=== PATIENT | male | born 1965 | race African-American/Black ===

== ENCOUNTER 2018-02-13 00:57 | Inpatient (IN) | payer BC ==
[~2018-02-13] VITALS: Ht 180.3 cm; Wt 159.9 kg
[2018-02-13] VITALS (8 sets, daily range): BP systolic 100–136; BP diastolic 56–82
--- NOTE | ~2018-02-13 | EKG ---
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 : 1965 Requested By: Jyoti Jerez Order Number: [id number] MD: Heriberto Vela Measurements Intervals [place] Rate: 53 P: -15 [place]: 205 QRS: 30 QRSD: 91 T: -23 QT: 471 QTc: 443 Interpretive Statements Sinus rhythm Borderline prolonged [place] interval Borderline T abnormalities, inferior leads Baseline wander in lead(s) V2 Compared to ECG 06/23/2015 09:33:51 Sinus tachycardia no longer present T-wave abnormality still present Electronically Signed On 02-13-2018 7:32:49 CDT by Heriberto Vela [email or web address] <ELECTRONICALLY SIGNED> By: Heriberto Vela MD 02/13/18 0732 0532 Heriberto Vela MD /EPI
--- NOTE | ~2018-02-13 | 2DMMODE ---
[facility] [address] [place] [address] 2 D/M-MODE ECHOCARDIOGRAM Name: NICOLE COTTRELL Room #: 211-P ADM IN M.R.#: [id number] Admission: 02/13/18 Attend Phys: Jennifer Clark Discharge: Date of : 65 Date of Service: 02/13/18 0930 Report #: [id number] THIS REPORT FOR: //name// APPROVED REPORT Study performed: 02/13/2018 08:27:08 EXAM: Comprehensive 2D, Doppler, and color-flow Echocardiogram Patient Location: Bedside Room #: 211 Status: routine BSA: 2.70 HR: 56 bpm BP: 120/71 mmHg Other Information Study Quality: Adequate Indications Diabetes Chest Pain Echo Enhancing Agent Indication: Endocardial border delineation Agent(s) / Amount(s) Used: Optison 5 cc 2D Dimensions LVEF(%): 37.54 (>50%) IVSd: 11.41 (7-11mm) LVOT Diam: 23.77 (18-24mm) LVDd: 51.17 mm PWd: 10.49 (7-11mm) Ascending Ao: 33.47 (22-36mm) LVDs: 41.86 (25-40mm) Aortic Root: 38.66 mm Hurley's LVEF: 37.54 % Aortic Valve AoV Peak Deepak.: 1.08 m/s AO Peak Gr.: 4.65 mmHg LVOT Max P.84 mmHg LVOT Max V: 0.84 m/s PEPITO Vmax: 3.46 cm2 Mitral Valve E/A Ratio: 2.0 MV Decel. Time: 229.64 ms MV E Max Deepak.: 0.81 m/s [facility] [address] [place] [address] 2 D/M-MODE ECHOCARDIOGRAM Name: NICOLE COTTRELL Room #: [facility] ADM IN ..#: [id number] Admission: 02/13/18 Attend Phys: Jennifer Clark Discharge: Date of : 65 Date of Service: 02/13/18 0930 Report #: [id number] MV A Deepak.: 0.41 m/s MV PHT: 66.59 ms IVRT: 87.66 ms Pulmonary Valve PV Peak Deepak.: 0.73 m/s PV Peak Gr.: 2.14 mmHg Left Ventricle The left ventricle is normal size. There is normal left ventricular wall thickness. The left ventricular systolic function is normal. The left ventricular ejection fraction is within the normal range. LVEF is >55%.possibly mild hypo inf base tech difficult The left ventricular diastolic function is normal. Right Ventricle Right ventricle is not well visualized. The right ventricle appears normal in size. The right ventricular systolic function is normal. Atria The left atrium size is normal. Right atrium is not well visualized appears normal. Aortic Valve The aortic valve is not well visualized. Trace aortic regurgitation. There is no aortic valvular stenosis. Mitral Valve The mitral valve is normal in structure. There is no mitral valve regurgitation noted. No evidence of mitral valve stenosis. Tricuspid Valve Tricuspid valve is not well visualized. There is no tricuspid valve regurgitation noted. Pulmonic Valve Pulmonic valve is not well visualized. There is no pulmonic valvular regurgitation. Great Vessels The aortic root is normal in size. IVC is not well visualized. Pericardium There is no pericardial effusion. [facility] [address] [place] [address] 2 D/M-MODE ECHOCARDIOGRAM Name: NICOLE COTTRELL Room #: 211-P ADM IN M.R.#: [id number] Admission: 02/13/18 Attend Phys: Jennifer Clark Discharge: Date of : 65 Date of Service: 02/13/18 0930 Report #: [id number] <Conclusion> The left ventricle is normal size. LVEF is >55%.possibly mild hypo inf base tech difficult Right ventricle is not well visualized. The right ventricle appears normal in size. The left atrium size is normal. The aortic valve is not well visualized. There is no mitral valve regurgitation noted. There is no tricuspid valve regurgitation noted. The aortic root is normal in size. IVC is not well visualized. There is no pericardial effusion. <ELECTRONICALLY SIGNED> By: Bobby Marshall MD, [facility] 02/13/18929 9 9 Bobby Marshall MD, [facility] /INF
--- NOTE | ~2018-02-13 | EKG ---
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 : 1965 Requested By: Hector Faria Order Number: [id number] MD: Heriberto Vela Measurements Intervals [place] Rate: 75 P: 57 [place]: 183 QRS: 27 QRSD: 91 T: -46 QT: 417 QTc: 466 Interpretive Statements Sinus rhythm Nonspecific T abnormalities, inferior leads Compared to ECG 06/23/2015 09:33:51 Sinus tachycardia no longer present T-wave abnormality still present Electronically Signed On 02-13-2018 7:32:07 CDT by Heriberto Vela [email or web address] <ELECTRONICALLY SIGNED> By: Heriberto Vela MD 02/13/18 0732 0103 0103 Heriberto Vela MD /CONCEPCION
--- NOTE | ~2018-02-13 | CATHLAB ---
[facility] [address] [place] [address] INVASIVE PROCEDURE REPORT Name: NICOLE COTTRELL Room #: 211-P DIS IN M.R.#: [id number] Admission: 02/13/18 Attend Phys: Jennifer Clark Discharge: 02/15/18 Date of : 65 Date of Service: 02/16/18 0932 Report #: [id number] THIS REPORT FOR: //name// APPROVED REPORT Study performed: 02/14/2018 13:28:43 Patient Details Patient Status: In-Patient Room #: 211 The patient is a 52 year-old male Event Personnel Salvador Steel Golf Ball Trimmer, Mauri Irwin RN RN, Tania Fisher RTR, Davian Blevins David Monitor Procedures Performed Art Access - R femoral artery* Left Heart Cath w/or w/o Coronaries [id number] [facility] Hemostasis w/ Mynx 24637 Initial Mod Sed Same Phys/QHP Gr5y [id number] supervision of conscious sedation Indication Non-STEMI (>24 hrs to = 48 hrs), Chest pain Procedure Narrative The Right Groin^ was infiltrated with 1% Lidocaine subcutaneous anesthesia. A PINNACLE 6FR Sheath #[id number] sheath was inserted into the RFA^. Coronary angiography was performed using coronary diagnostic catheters. The right coronary system was accessed and visualized with a JR4 catheter. The left coronary system was accessed and visualized with a JL5 catheter. Left ventricular/Aortic Valve gradient assessed via catheter pullback. Pre-demployment femoral angiogram was performed . Closure device was deployed with a 6 Fr MYNXGRIP 6/7F #[id number]. The patient tolerated the procedure well and there were no complications associated with the procedure. There was no hematoma. Intraoperative Conscious Sedation Sedation start time: 14:33 Case end Time: 14:50 Versed 3 mg Fluoro Time: 3.01 minutes Dose: 1186 mGy Contrast Type and Amount: Omnipaque 90 ml [facility] [address] [place] [address] INVASIVE PROCEDURE REPORT Name: NICOLE COTTRELL Room #: 211-P [facility] IN .R.#: [id number] Admission: 02/13/18 Attend Phys: Jennifer Clark Discharge: 02/15/18 Date of : 65 Date of Service: 02/16/18 0932 Report #: [id number] Coronary Angiography The patient's coronary anatomy is right dominant. Diagnostic Cath Left Main Large-caliber vessel bifurcates left anterior descending left circumflex without significant obstructive lesion but only luminal irregularities noted LAD Moderate caliber vessel which has proximal ectatic region. There is a trifurcation at the first septal welding pantograph operator and then the LAD proper continues in the anterior interventricular sulcus with mild to moderate luminal irregularities of less than 40%. It then courses in the anterior interventricular sulcus terminating at the apex. Prior to the termination there is a high-grade 70% lesion of the glass centimeter to centimeter and a half of the LAD. The vessel at this point is under 1 mm in diameter Diagonal 1 Small-caliber vessel under half a millimeter in diameter with irregularities and diffuse disease of approximately 70% throughout its proximal third and terminates as a hair-like vessel in the anterolateral wall Circumflex Large-caliber vessel which gives rise to marginal branches and terminates as a small posterior wall branch. There is luminal irregularities present throughout the circumflex but no significant high-grade lesions. There is evidence of left to right collaterals to the distal right coronary artery there is evidence of [id number] collaterals to the distal right coronary artery left coronary artery injections Right Coronary Moderate to large caliber vessel of normal origin. It is tortuous in its course as it proceeds to the posterior aspect of the heart. There is irregularities and ectasia noted in the proximal and mid RCA's all of which are less than 50%. The PDA then arises as a small caliber diffusely diseased vessel that terminates that they string-like vessel. The posterior RCA continues on to a posterior lateral branch which is completely occluded in its proximal third. R PDA Small-caliber string-like vessel with diffuse lesions noted Left Ventriculography Left Ventriculography was not performed. Hemodynamics The aortic pressure is 138/88 mmHg with a mean of 97 mmHg. The left ventricular pressure is 132/11 mmHg with a mean of mmHg. The left ventricular end diastolic pressure is 27 mmHg. There was no gradient across the aortic valve upon pullback. [facility] [address] [place] [address] INVASIVE PROCEDURE REPORT Name: NICOLE COTTRELL Room #: 211-P [facility] IN M.R.#: [id number] Admission: 02/13/18 Attend Phys: Wicho Pattersonjustinolaith Jennifer Discharge: 02/15/18 Date of : 65 Date of Service: 02/16/18931 Report #: [id number] Conclusion 1. 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 Abnormal hemodynamics with elevated liver ventricular end-diastolic pressure Recommendations Cardiac Rehabilitation Referral Cardiac Risk Reduction Program Aggressive Medical Therapy Weight Loss Reduction Program <ELECTRONICALLY SIGNED> By: Salvador Steel MD 02/16/1832 1 1 Salvador Steel MD /INF
[~2018-02-13 00:57] MED LIST: ALLOPURINOL 10100 M2 PO; CARVEDILOL12.5 MG PO; CENTRUM SILVER1 EAC4 PO; CHLORPROMAZINE25 M1 PO; COREG6.25 MG PO; COUMADIN 5 MG TA5 M1 PO; ENOXAPARIN150 MG/11 SUBQ; ENOXAPARIN40 MG/0.1 SUBQ; GLUCOTROL5 MG PO; HYDROCODONE-AP1 EAC6 PO; KLOR-CON M2020 MEQ PO; LASIX 40 MG TAB40 M2 PO; LIPITOR40 MG PO; PRINIVIL10 MG PO
[2018-02-13 01:12] LABS: ABSOLUTE NEUTROPHILS 6.9 thou/uL (1.4-8.2); EOSINOPHILS 0.7 % (0.0-3.0); HEMATOCRIT 41.7 % (42.0-52.0); HEMOGLOBIN 13.4 gm/dL (14.0-18.0); LYMPHOCYTES 16.4 % (24.0-44.0); MCH 26.9 pg (26.0-34.0); MCV 83.9 fL (80.0-100.0); MONOCYTES 4.7 % (1.0-8.0); PLATELET COUNT 253 thou/uL (150-400); POLYS 77.2 % (36.0-66.0); RBC 4.96 mil/uL (4.50-6.00); RDW 15.3 % (10.5-14.5); WBC 8.9 thou/uL (4.0-11.0)
[2018-02-13 01:22] LABS: CALCIUM 9.4 mg/dL (8.5-10.1); CREATININE 1.3 mg/dL (0.7-1.3)
[2018-02-13 01:30] LABS: ALBUMIN 3.9 g/dL (3.4-5.0); MAGNESIUM 1.9 mg/dL (1.8-2.4); TOTAL BILIRUBIN 0.8 mg/dL (<0.1-1.0)
[2018-02-13 01:31] LABS: TROPONIN-I 6.05 ng/mL (<0.06)
[2018-02-13 01:46] LABS: APTT 33.3 Seconds (24.5-32.8); INR 1.7; PROTIME 16.9 Seconds (9.3-11.4)
[2018-02-13] MEDS ORDERED: IRON325 PO (04:04)
[2018-02-13] MEDS ORDERED: VITAMIN D31000 UNI2 PO (04:06)
[2018-02-13 06:51] LABS: HEMATOCRIT 38.1 % (42.0-52.0); HEMOGLOBIN 12.1 gm/dL (14.0-18.0); MCH 26.6 pg (26.0-34.0); MCHC 31.7 g/dL (28.0-37.0); RBC 4.54 mil/uL (4.50-6.00); RDW 15.4 % (10.5-14.5); WBC 8.7 thou/uL (4.0-11.0)
[2018-02-13 07:00] LABS: INR 1.7; PROTIME 16.8 Seconds (9.3-11.4)
[2018-02-13 07:01] LABS: APTT 45.5 Seconds (24.5-32.8)
[2018-02-13 07:09] LABS: CHOLESTEROL 163 mg/dL (<200); HDL CHOLESTEROL 48 mg/dL (>40); LDL CHOLESTEROL 87 mg/dL (<100); TC:HDL 3.4 Ratio (Not establshd); TRIGLYCERIDE 141 mg/dL (<150); VLDL 28 mg/dL (<40)
[2018-02-14] VITALS (10 sets, daily range): BP systolic 107–129; BP diastolic 70–78
[2018-02-14 02:09] LABS: GLYCOHEMOGLOBIN (HGB A1C) 9.6 % (4.8-5.6)
[2018-02-14 04:44] LABS: ABSOLUTE NEUTROPHILS 5.4 thou/uL (1.4-8.2); BASOPHILS 0.6 % (0.0-2.0); EOSINOPHILS 1.8 % (0.0-3.0); HEMATOCRIT 37.2 % (42.0-52.0); HEMOGLOBIN 11.8 gm/dL (14.0-18.0); LYMPHOCYTES 22.4 % (24.0-44.0); MCH 26.6 pg (26.0-34.0); MCHC 31.6 g/dL (28.0-37.0); MCV 84.1 fL (80.0-100.0); MONOCYTES 6.2 % (1.0-8.0); PLATELET COUNT 243 thou/uL (150-400); RBC 4.43 mil/uL (4.50-6.00); RDW 15.6 % (10.5-14.5); WBC 7.8 thou/uL (4.0-11.0)
[2018-02-14 04:45] LABS: CALCIUM 8.9 mg/dL (8.5-10.1); CREATININE 1.1 mg/dL (0.7-1.3); MAGNESIUM 1.8 mg/dL (1.8-2.4); POTASSIUM 3.9 mmol/L (3.5-5.1)
[2018-02-15 03:45] VITALS: BP 110/70
[2018-02-15 05:10] LABS: ABSOLUTE NEUTROPHILS 5.5 thou/uL (1.4-8.2); BASOPHILS 0.8 % (0.0-2.0); HEMATOCRIT 37.3 % (42.0-52.0); MCH 27.1 pg (26.0-34.0); MCHC 32.2 g/dL (28.0-37.0); MCV 84.2 fL (80.0-100.0); MONOCYTES 6.1 % (1.0-8.0); PLATELET COUNT 242 thou/uL (150-400); POLYS 70.1 % (36.0-66.0); RBC 4.43 mil/uL (4.50-6.00); RDW 15.1 % (10.5-14.5); WBC 7.9 thou/uL (4.0-11.0)
[2018-02-15 05:28] LABS: CALCIUM 8.8 mg/dL (8.5-10.1); CREATININE 1.1 mg/dL (0.7-1.3); POTASSIUM 3.9 mmol/L (3.5-5.1)
[2018-02-15 08:00] VITALS: BP 119/84
[2018-02-15 08:52] LABS: INR 1.5; PROTIME 14.9 Seconds (9.3-11.4)
[2018-02-15] MEDS ORDERED: ASPIR 8181 MG PO (09:50)
[2018-02-15] MEDS ORDERED: NITROGLYCERIN0.4 MG SUBLING (09:50)
[2018-02-15] MEDS ORDERED: PLAVIX 75 MG TA75 M1 PO (09:50)
[2018-02-15] MEDS ORDERED: ENOXAPARIN120 MG/0.1 SUBQ (11:32)
[2018-02-15 12:00] VITALS: BP 117/75
[2018-02-15 13:52] VITALS: BP 117/75
== END 2018-02-15 14:42 | disposition home or self-care (01) | DRG 280 ==
LOC: ER 00:57 → EROBS 02:02 → 2N 02:02
PROVIDERS: Emergency Medicine; Internal Medicine; Nurse Practitioner Acute Care
DX: I21.4 Non-ST elevation (NSTEMI) myocardial infarction (principal); E43 Unspecified severe protein-calorie malnutrition; I42.9 Cardiomyopathy, unspecified; Z68.42 Body mass index [BMI] 45.0-49.9, adult; E11.9 Type 2 diabetes mellitus without complications; I50.9 Heart failure, unspecified; E78.00 Pure hypercholesterolemia, unspecified; I11.0 Hypertensive heart disease with heart failure; M10.9 Gout, unspecified; E66.01 Morbid (severe) obesity due to excess calories; G47.33 Obstructive sleep apnea (adult) (pediatric); I48.2 Chronic atrial fibrillation; Z79.82 Long term (current) use of aspirin; Z79.899 Other long term (current) drug therapy; Z85.048 Personal history of other malignant neoplasm of rectum, rectosigmoid junction, and anus; Z86.718 Personal history of other venous thrombosis and embolism; Z86.711 Personal history of pulmonary embolism; Z95.828 Presence of other vascular implants and grafts; Z88.8 Allergy status to other drugs, medicaments and biological substances; Z85.038 Personal history of other malignant neoplasm of large intestine; Z82.49 Family history of ischemic heart disease and other diseases of the circulatory system; Z83.3 Family history of diabetes mellitus
CPT/HCPCS: 10081